=== PATIENT | female | born 1970 | race Hispanic/Latino ===

== ENCOUNTER 2022-01-01 19:46 | Emergency (ER) | payer SELFPAY ==
[2022-01-01 19:49] VITALS: BP 161/97; PULSE 83; RESP 16; TEMP 37.4; O2SAT 100
--- NOTE | 2022-01-01 20:12 | ED.EXTPRO ---
HPI - Extremity Problem General Chief complaint: Extremity Problem,Nontraumatic Stated complaint: left hand swelling Time Seen by Provider: 01/01/22 19:59 Source: patient Mode of arrival: ambulatory Limitations: no limitations History of Present Illness HPI Narrative: Patient is a 51-year-old female complaining of left hand pain, mild swelling, worse with movement x2 days. Patient states that she works a lot with her hands. Patient denies any injury to the hand. Patient denies any cold extremity. Patient denies any weakness or numbness of the hand. Patient denies any fever or chills. Related Data Allergies Allergy/AdvReac Type Severity Reaction Status Date / Time No Known Allergies Allergy Verified 01/01/22 19:47 Review of Systems Review of Systems: All systems reviewed & are unremarkable except as noted in HPI and below Constitutional: Constitutional: Denies body ache(s), Denies chills, Denies excessive sweating, Denies fatigue, Denies fever(s), Denies headache(s), Denies lethargy, Denies malaise, Denies weakness and Denies weight loss Eyes: Eyes: Denies blurry vision, Denies change in vision and Denies loss of vision ENT: Denies dizziness, Denies ear discharge, Denies headache(s), Denies lip swelling, Denies epistaxis, Denies nasal congestion, Denies neck pain, Denies throat swelling and Denies tongue swelling Cardiovascular: Cardiovascular: Denies chest pain, Denies chest pain at rest, Denies chest pain with activity, Denies diaphoresis, Denies rapid heart rate, Denies edema, Denies irregular heart rhythm, Denies lightheadedness, Denies palpitations, Denies dyspnea and Denies dyspnea on exertion Respiratory: Respiratory: Denies chest congestion, Denies cough, Denies hemoptysis, Denies dyspnea and Denies dyspnea on exertion Gastrointestinal: Gastrointestinal: Denies abdominal pain, Denies melena, Denies hematochezia, Denies diarrhea, Denies nausea, Denies vomiting and Denies hematemesis Musculoskeletal: Musculoskeletal: Denies abnormal gait, Denies deformity, Denies joint swelling, Denies limited range of motion, Denies neck pain and Denies numbness Neurologic: Denies Abnormal speech present, Denies abnormal gait, Denies confusion, Denies dizziness, Denies headache(s), Denies focal weakness, Denies loss of vision, Denies numbness, Denies Other visual disturbances, Denies Sensory deficit (Neuro) and Denies weakness Psychiatric: Psychiatric: Denies confusion, Denies depression, Denies auditory hallucinations, Denies homicidal ideation and Denies suicidal ideation Endocrine: Endocrine: Denies cold intolerance, Denies excessive sweating, Denies fatigue, Denies heat intolerance and Denies palpitations Hematologic/Lymphatic: Hematologic/Lymphatic: Denies easy bleeding and Denies easy bruising Allergic/Immunologic: Allergic/Immunologic: Denies lip swelling, Denies throat swelling and Denies tongue swelling PMFSH Comments Past medical history: Hypothyroidism Family history: Unknown Social history: Non-smoker no EtOH or drug use Exam Const: General: no acute distress and alert Orientation/consciousness: patient oriented x3 HENMT: Head: normal to inspection Eyes: Conjunctivae: conjunctivae normal Neck: Neck: normal visual inspection Resp: Effort & Inspection: normal respiratory effort Skin: General skin exam: normal color Rashes: no rashes Neuro: General: patient oriented x3 and moves all extremities Extrem: General: normal to inspection Other: Mild left hand swelling, negative for deformity, pain with range of motion, neurovascular is intact Course Vital Signs Vital signs: Vital Signs Temperature 37.4 C 01/01/22 19:49 Pulse Rate 83 01/01/22 19:49 Respiratory Rate 16 01/01/22 19:49 Blood Pressure 161/97 H 01/01/22 19:49 Pulse Oximetry 100 01/01/22 19:49 Temperature 37.4 C 01/01/22 19:49 Pulse Rate 83 01/01/22 19:49 Respiratory Rate 16 01/01/22 19:49 Blood Pressure 161/97 H 12/20
[2022-01-01] MEDS: HYDROcodone/acetaminophen (*CRX) 5-325 MG TABLET 1 TAB PO (20:26)
[2022-01-01] MEDS: CYCLOBENZAPRINE HCL 10 MG TABLET PO (20:26)
[2022-01-01] MEDS: KETOROLAC 30 MG/ML VIAL (*BKC) IM (20:27)
[2022-01-01 21:16] VITALS: BP 132/88; PULSE 77; RESP 18; O2SAT 98
== END 2022-01-01 21:23 | disposition home or self-care (01) ==
LOC: ANHED 21:05
PROVIDERS: Emergency Provider Emergency Medicine
DX: M79.642 Pain in left hand (principal); E03.9 Hypothyroidism, unspecified
CPT/HCPCS: 96372; 99283; A9270; J1885

== ENCOUNTER 2022-01-07 03:15 | Inpatient (IN) | payer MEDICAID, SELFPAY ==
[2022-01-07] VITALS (48 sets, daily range): BP systolic 98–155; BP diastolic 67–100; PULSE 60–92; RESP 12–20; TEMP 36.3–37.1; O2SAT 92–100; BMI 43.2
--- NOTE | ~2022-01-07 | XR_ITS ---
XR chest 1V portable 01/08/2022 11:26 Indication: Shortness of breath Procedure: AP portable chest Comparison: No prior studies for comparison. Findings: Cardiomegaly. No focal air space disease, pulmonary edema, pleural effusion or suspected pn eumothorax. Impression: 1: No acute cardiopulmonary disease. Reviewed, dictated and finalized at location A. TATION WORKER HOSING MACHINERY Impression: 1: No acute cardiopulmonary disease.
--- NOTE | ~2022-01-07 | CT_ITS ---
EXAMINATION: CTA chest PE protocol DATE: 01/07/2022 14:52 OPERATIONS RESEARCH MANAGER INDICATION: Shortness of breath. Chest pain. TECHNIQUE: Computed tomographic angiography (CTA) of the chest was performed with 100 mL Omnipaque-35 0 intravenous contrast. The dose-length product was 712.30 mGy-cm. Maximum intensity projection 3D-re constructions of the aorta and other arteries were constructed by the technologist on a separate work station. Automated exposure control and iterative reconstruction technique were employed. COMPARISON: None. FINDINGS: Study is technically adequate without evidence for pulmonary embolism. No thoracic lymphade nopathy. No significant pleural or pericardial effusion. There is extensive groundglass opacification in both lungs, possibly due to expiratory imaging, pneumonia or edema No pneumothorax. Cardiomegaly. IMPRESSION: 1. No evidence for pulmonary embolism. 2: Bilateral groundglass opacities which may be due to expiratory imaging, pneumonia or edema. Reviewed, dictated and finalized at location A. ATIONS RESEARCH MANAGER IMPRESSION: 1. No evidence for pulmonary embolism. 2: Bilateral groundglass opacities which may be due to expiratory imaging, pneu monia or edema.
--- NOTE | 2022-01-07 03:31 | ECG_ITS ---
Measurements Intervals [place] Rate: 67 P: 30 [place]: 151 QRS: 11 QRSD: 101 T: 14 QT: 412 QTc: 436 Interpretive Statements SINUS RHYTHM LEFT VENTRICULAR HYPERTROPHY BASELINE ARTIFACT- I, II, III, AVR, AVL, AVF BORDERLINE ECG Electronically Signed On 01-07-2022 8:18:05 STOCKROOM SUPERVISOR by Favio Gimenez D.O.
[2022-01-07] MEDS: MORPHINE SULFATE (*CRX) 4 MG/ML INJ IV PUSH ×2 (03:39→09:42)
[2022-01-07] MEDS: ONDANSETRON INJ 4 MG/2 ML VIAL IV PUSH ×2 (03:40→09:42)
[2022-01-07 03:44] LABS: Basophils Absolute Auto 0.1 K/mm3 (0.0-0.1); Basophils Percent Auto 0.8 % (0.2-1.2); Eosinophils Absolute Auto 0.2 K/mm3 (0-0.3); Eosinophils Percent Auto 1.4 % (0-4.4); Hematocrit 44.9 % (37.0-47.0); Hemoglobin 15.2 g/dL (12.0-15.0); Immature Granulocyte Absolute 0.04 K/mm3 (0.00-0.031); Immature Granulocyte Percent A 0.3 % (0-0.5); Lymphocytes Absolute Auto 6.15 K/mm3 (0.9-3.2); Lymphocytes Percent Auto 43.7 % (18.3-44.2); Mean Corpuscular HGB Conc 33.9 g/dl (32-36); Mean Corpuscular Hemoglobin 31.5 pg (26-34); Mean Corpuscular Volume 93.2 fl (80-100); Monocytes Absolute Auto 1.1 K/mm3 (0.1-0.6); Monocytes Percent Auto 7.8 % (2.6-8.5); Neutrophils Absolute Auto 6.5 K/mm3 (1.3-6.7); Platelet Count Result 316 k/mm3 (150-375); Red Blood Count 4.82 M/mm3 (4.2-5.4); Red Cell Distribution Width 14.6 % (11.5-14.5); White Blood Count 14.1 K/mm3 (4.5-10.0)
[2022-01-07 03:59] LABS: Prothrombin Time 12.5 Seconds (11.1-14.7)
[2022-01-07 04:00] LABS: Alanine Aminotransferase 31 U/L (4-35); Albumin Level 4.4 g/dL (3.5-5.1); Alkaline Phosphatase 110 U/L (38-126); Anion Gap 9 mmol/L (8-16); Aspartate Amino Transferase 27 U/L (14-36); Bilirubin,Total 0.2 mg/dL (0.2-1.3); Blood Urea Nitrogen 21 mg/dL (7-17); Calcium 9.1 mg/dL (8.4-10.2); Carbon Dioxide 27 mmol/L (22-30); Chloride 105 mmol/L (98-107); Estimated Glomerular Filt Rate > 60; Glucose 125 mg/dL (65-110); Lipase 35 U/L (23-300); Partial Thromboplastin Time 25.7 SECONDS (22.3-36.8); Potassium 3.8 mmol/L (3.4-5.0); Sodium 141 mmol/L (137-145)
[2022-01-07 04:17] LABS: NT Pro B Type Natriuretic Pept 23 pg/mL (5-100); Troponin I 0.109 ng/mL (0.000-0.034)
--- NOTE | 2022-01-07 04:21 | ECG_ITS ---
Measurements Intervals [place] Rate: 71 P: 35 [place]: 147 QRS: 14 QRSD: 104 T: 17 QT: 420 QTc: 459 Interpretive Statements SINUS RHYTHM LEFT VENTRICULAR HYPERTROPHY MINIMAL Q WAVES- HIGH LATERAL LEADS BORDERLINE ECG Electronically Signed On 01-07-2022 8:18:23 SOLE SKIVER by Favio Gimenez D.O.
--- NOTE | 2022-01-07 04:27 | ED.CHESTPAIN ---
HPI - Chest Pain General Chief Complaint: Chest Pain Stated Complaint: Chest pain Time Seen by Provider: 01/07/22 03:21 History of Present Illness HPI narrative: Patient is a 51-year-old female who is Latvian-speaking that presents ER with chest pain. Sudden onset woke her up from sleep. Center of the chest and pressure. Worse with laying down flat. Worsens also with exertion associated with shortness of breath. Denies history of [place]. Patient recently traveled from [place] to this area in the last month. Intermittently has leg swelling. No calf pain. No hemoptysis or productive cough. No pain with deep breaths. Related Data Home Medications Medication Instructions Recorded Confirmed levothyroxine 100 mcg DAILY 01/07/22 01/07/22 Allergies Allergy/AdvReac Type Severity Reaction Status Date / Time No Known Allergies Allergy Verified 01/07/22 03:31 Review of Systems Review of Systems: All systems reviewed & are unremarkable except as noted in HPI and below Constitutional: Constitutional: Denies chills, Denies fever(s) and Denies weakness ENT: Denies nasal congestion and Denies sore throat Cardiovascular: Cardiovascular: Reports chest pain, Denies rapid heart rate and Denies radiating jaw, neck or arm pain Respiratory: Respiratory: Denies cough, Reports dyspnea and Denies wheezing Gastrointestinal: Gastrointestinal: Denies abdominal pain, Denies diarrhea, Reports nausea and Denies vomiting Genitourinary: Genitourinary: Denies nocturia and Denies dysuria Musculoskeletal: Musculoskeletal: Denies back pain, Denies joint swelling and Denies muscle cramps PMFSH Past Medical History Medical History (Updated 01/08/22 @ 00:10 by Angel Rockwell MD) Hypothyroid Family History Family History (Updated 01/07/22 @ 13:39 by Gurpreet Estrada MD) Mother Hypothyroidism Social History Social History (Updated 01/07/22 @ 12:08 by Ramonita Jalloh APRN) Smoking packs per day: 0.5 Smoking cigarettes per day: 10.0 Years smoked: 10 Smoking pack-years: 5.00 Smoking status: Current every day smoker Tobacco type: cigarettes Alcohol intake: never Substance use: never Living arrangements: with family Spiritual care concerns: No Exam Narrative: GENERAL: Uncomfortable-appearing, obese, and in no acute distress. HEAD: Normocephalic, atraumatic. ENT: Mucous membranes moist. CHEST: Clear to auscultation. No respiratory distress. HEART: Regular rate and rhythm. Normal peripheral pulses. ABDOMEN: Soft, nontender, nondistended. EXTREMITIES: Normal range of motion. 1+ edema. SKIN: Warm, dry, no rash. NEURO: Alert and oriented x3. PSYCH: Normal mood and affect. Course Course Emergency Course: Pain was 8/10 but 4/10 after nitroglycerin. Admit to hospitalist service. Cardiology consulted and patient started on heparin drip. We will keep n.p.o. Vital Signs Vital signs: Vital Signs Temperature 97.4 F L 01/07/22 03:17 Pulse Rate 73 01/07/22 03:17 Respiratory Rate 20 01/07/22 03:17 Blood Pressure 139/89 01/07/22 03:17 Pulse Oximetry 98 01/07/22 03:17 Temperature 97.8 F 01/07/22 23:38 Pulse Rate 73 01/07/22 23:38 Respiratory Rate 18 01/07/22 23:38 Blood Pressure 110/67 01/07/22 23:38 Pulse Oximetry 96 01/07/22 23:38 MDM - Chest Pain Lab Data Result diagrams: 01/07/22 03:36 01/07/22 12:46 Labs: Lab Results 01/07/22 01/07/22 01/07/22 Range/Units 03:36 03:36 03:36 WBC 14.1 H (4.5-10.0) K/mm3 RBC 4.82 (4.2-5.4) M/mm3 Hgb 15.2 H (12.0-15.0) g/dL Hct 44.9 (37.0-47.0) % MCV 93.2 (80-100) fl MCH 31.5 (26-34) pg MCHC 33.9 (32-36) g/dl RDW 14.6 H (11.5-14.5) % Plt Count 316 (150-375) k/mm3 MPV 10.0 (7.4-10.4) fl Immature Gran % (Auto) 0.3 (0-0.5) % Neut % (Auto) 46.0 (45.5-73.1) % Lymph % (Auto) 43.7 (18.3-44.2) % [place] % (Auto) 7.8 (2.6-8.5) % Eos %
[2022-01-07] MEDS: NITROGLYCERIN SL 0.4 MG TABLET SUBLINGUAL (04:31)
--- NOTE | 2022-01-07 04:34 | PC.NURSE ---
Patient aware of need for urine specimen, unable to provide one at this time.
--- NOTE | 2022-01-07 04:42 | PC.NURSE ---
Patient given 2nd nitro.
[2022-01-07] MEDS: HEPARIN SODIUM 5,000 UNITS/ML VIAL 4000 UNITS IV PUSH (04:51)
[2022-01-07] MEDS: HEPARIN SOD/D5W 100 UNITS/ML 25,000 UNITS/250 ML BAG 8 UNITS IV CONT (05:30)
[2022-01-07 07:07] LABS: SARS-CoV-2 RNA PCR Negative
[2022-01-07 07:11] LABS: Add Urine Microscopic? YES; Appearance Urine Clear (Clear); Bacteria Urine Trace /hpf; Bilirubin Urine Negative (Negative); Blood Urine 1+ (Negative); Color Urine Yellow (Yellow); Glucose Urine UA Negative (Negative); Ketones Urine Negative (Negative); Leukocyte Esterase Ur Negative LEU/UL (Negative); Mucus Urine Moderate /lpf; Nitrate Urine Negative (Negative); Protein Urine Negative (Negative); Squamous Epithelial Cell Urine Rare /hpf (Few); Urobilinogen Urine Negative mg/dL (<2.0); WBC Urine 0-3 /hpf
[2022-01-07 07:20] LABS: Specific Grav Ur 1.015 (1.001-1.035)
[2022-01-07 07:21] LABS: Troponin I 0.356 ng/mL (0.000-0.034)
--- NOTE | 2022-01-07 08:17 | PC.NURSE ---
pt sent to floor with heparin drip infusing
--- NOTE | 2022-01-07 10:16 | ECG_ITS ---
Measurements Intervals [place] Rate: 73 P: 18 [place]: 142 QRS: 3 QRSD: 100 T: -10 QT: 391 QTc: 432 Interpretive Statements SINUS RHYTHM LEFT VENTRICULAR HYPERTROPHY MINIMAL Q WAVES- HIGH LATERAL LEADS BORDERLINE ST-T WAVE ABNORMALITY- INFERIOR LEADS BORDERLINE ECG Electronically Signed On 01-07-2022 10:37:40 OIL RIGGER by Favio Gimenez D.O.
--- NOTE | 2022-01-07 12:06 | PM.IMHP ---
H&P: HPI History of Present Illness Date/Time: 01/07/22 12:06 Patient is a 51-year-old female with a past medical history of hypothyroidism, tobacco abuse and obesity. She presented to the hospital after developing chest pain at 3:00 a.m. this morning. It woke her up from her sleep. Pain radiated from her chest to her neck/jaw area and around to her back. She was able to get to the emergency department and received morphine, Zofran, nitro sublingual and started on a heparin drip. Labs and imaging were obtained during this time. Labs were significant for a WBC of 14.1, hemoglobin 15.2, hematocrit 44.9, platelets 316, sodium 141, potassium 3.8, BUN 21, creatinine 0.7 and a GFR greater than 60. Glucose was mildly elevated at 125, will obtain hemoglobin A1c, normal LFTs. Troponin initially 0.109, 0.356 and the 3rd subsequent troponin 1.100. Cardiology was consulted from the emergency department and will see in consultation. EKG did not reveal any ST segment abnormalities. CTA of the chest did not reveal a pulmonary embolism, did report possible pulmonary edema/diffuse ground-glass opacifications and cardiomegaly Patient is being admitted for further evaluation of acute coronary syndrome and management of comorbidities. Chief Complaint: Chest pain Review of Systems Review of Systems: All systems reviewed & are unremarkable except as noted in HPI and below PMFSH Past Medical History Medical History (Updated 01/07/22 @ 12:10 by Ramonita Jalloh APRN) Hypothyroid Social History Social History (Updated 01/07/22 @ 12:08 by Ramonita Jalloh APRN) Smoking packs per day: 0.5 Smoking cigarettes per day: 10.0 Years smoked: 10 Smoking pack-years: 5.00 Smoking status: Current every day smoker Tobacco type: cigarettes Alcohol intake: never Substance use: never Living arrangements: with family Spiritual care concerns: No Meds Home Medications and Allergies Home Medications Medication Instructions Recorded Confirmed Type levothyroxine 100 mcg DAILY 01/07/22 01/07/22 History Allergies Allergy/AdvReac Type Severity Reaction Status Date / Time No Known Allergies Allergy Verified 01/07/22 03:31 Vital Signs Vital Signs - 24 hr 01/07/22 03:17 01/07/22 03:34 01/07/22 04:11 Temperature 97.4 F L Pulse Rate 73 67 Respiratory Rate 20 14 Blood Pressure 139/89 Pulse Oximetry 98 100 99 01/07/22 04:15 01/07/22 04:26 01/07/22 04:30 Temperature Pulse Rate 65 65 67 Respiratory Rate 14 13 Blood Pressure 121/79 Pulse Oximetry 98 95 97 01/07/22 04:31 01/07/22 04:34 01/07/22 04:37 Temperature Pulse Rate 71 71 76 Respiratory Rate 14 12 16 Blood Pressure 127/87 123/75 124/81 Pulse Oximetry 98 99 92 01/07/22 04:40 01/07/22 04:43 01/07/22 04:45 Temperature Pulse Rate 74 76 76 Respiratory Rate 16 18 16 Blood Pressure 114/83 114/82 Pulse Oximetry 93 94 94 01/07/22 04:46 01/07/22 04:49 01/07/22 05:00 Temperature Pulse Rate 75 75 72 Respiratory Rate 16 16 16 Blood Pressure 98/80 L 114/75 Pulse Oximetry 92 93 92 01/07/22 05:01 01/07/22 05:15 01/07/22 05:16 Temperature Pulse Rate 74 71 74 Respiratory Rate 15 13 15 Blood Pressure 106/72 101/75 Pulse Oximetry 94 94 93 01/07/22 05:30 01/07/22 05:31 01/07/22 05:32 Temperature Pulse Rate 69 69 68 Respiratory Rate 14 14 13 Blood Pressure 122/79 Pulse Oximetry 93 95 96 01/07/22 06:10 01/07/22 06:15 01/07/22 06:16 Temperature Pulse Rate 73 70 72 Respiratory Rate 14 14 14 Blood Pressure 140/87 Pulse Oximetry 98 97 97 01/07/22 06:30 01/07/22 07:06 01/07/22 08:16 Temperature Pulse Rate 72 71 72 Respiratory Rate 15 14 18 Blood Pressure 146/100 H 147/100 H Pulse Oximetry 96 100 100 01/07/22 08:39 Temperature 98.0 F Pulse Rate 68 Respiratory Rate 16 Blood Pressure 155/81 H Pulse Oximetry 96 Exam Narrative: General: Pt is alert awake and oriented x3, no acute distre
--- NOTE | 2022-01-07 12:09 | PC.NURSE ---
This patient, Kristen Johnson, was admitted to IMU Room 206-02. Patient/family oriented to hospital policies and general routines including ID bracelet, bed and alarms, visiting hours, pain management, procedures, bathroom and other care routines, personal items, smoking policy, room service/diet, and visiting hours. Information on how to activate the Rapid Response Team has been discussed. Patient/Family are encouraged to report perceived risks to care and to ask questions if they do not understand what they are told or what they should do.
--- NOTE | 2022-01-07 12:16 | ECHO_ITS ---
Patient Info Name: Kristen Johnson Age: 51 years : 1970 Gender: Female Ht: 60 in Wt: 221 lbs BSA: 2.12 m2 HR: 79 bpm BP: 155 / 81 mmHg Heart Rhythm: Sinus Rhythm Technical Quality: Good Exam Date: 01/07/2022 1:50 PM Exam Location: [facility] Card Pulmonary Patient Status: Inpatient Admit Date: 01/07/2022 Staff Ordering Physician: Ramonita Jalloh APRN Cotton Baler: Radha Alcantara RDCS Attending Provider: Flores Benedict MD Referring Physician: Shubham KHANNA; Exam Type: CA echo doppler color flow Study Info Complete two-dimensional, color flow and Doppler transthoracic echocardiogram is performed. Summary 1. Complete two-dimensional, color flow and Doppler transthoracic echocardiogram is performed. 2. Left ventricular chamber dimension is normal. 3. Left ventricular systolic function is low normal, estimated at 50-55%. 4. There is mildly increased left ventricular wall thickness. 5. The left ventricular diastolic function is grade II diastolic dysfunction. 6. Left atrial chamber dimension is mildly enlarged. 7. There is mild mitral valve regurgitation. 8. There is mild tricuspid valve regurgitation. Left Ventricle Left ventricular chamber dimension is normal. Left ventricular systolic function is low normal, estimated at 50-55%. There is mildly increased left ventricular wall thickness. The left ventricular diastolic function is grade II diastolic dysfunction. Right Ventricle Right ventricular chamber dimension is normal. Right ventricular systolic function is normal. Left Atria Left atrial chamber dimension is mildly enlarged. Right Atria Right atrial chamber dimension is normal. Atrial Septum Intact interatrial septum visualized by color flow imaging. Aortic Valve The aortic valve is trileaflet. There is no aortic valve sclerosis. There is no aortic valve stenosis. There is trace aortic valve regurgitation. Pulmonic Valve The pulmonic valve is normal. There is no pulmonic valve stenosis. There is trace pulmonic regurgitation. Mitral Valve The mitral valve has normal leaflets. There is no mitral valve stenosis. There is mild mitral valve regurgitation. Tricuspid Valve The tricuspid valve leaflets are normal. There is no significant tricuspid valve stenosis. There is mild tricuspid valve regurgitation. No pulmonary hypertension, estimated pulmonary arterial systolic pressure is 25 mmHg. Pericardium/Pleural The pericardium appears normal. There is trivial pericardial effusion. Inferior Vena Cava Normal inferior vena cava with >50% collapse upon inspiration consistent with normal right atrial pressure, 5 mmHg. Aorta The aortic root size at the sinus of Valsalva is normal. Left Ventricular Outflow Tract Name Value Normal LVOT 2D LVOT Diameter 2.0 cm LVOT Doppler LVOT Peak Gradient 3 mmHg LVOT Mean Gradient 1 mmHg LVOT VTI 17 cm LVOT VTI/AV VTI Ratio 0.7 LVOT Stroke Volume 47 ml LVOT CO
[2022-01-07 13:21] LABS: Partial Thromboplastin Time 37.7 SECONDS (22.3-36.8)
--- NOTE | 2022-01-07 13:36 | PM.CNCAR ---
Assessment and Plan Assessment and plan (1) Acute coronary syndrome: Code(s): I24.9 - Acute ischemic heart disease, unspecified Status: Acute Assessment and Plan: Patient has elevated troponins that are rising and consistent with non ST-elevation myocardial infarction. She is on heparin. Will start her on atorvastatin 40 mg daily. Aspirin 81 mg p.o. daily. Metoprolol 25 mg p.o. b.i.d.. She did receive nitroglycerin which did help her pain but it has increased in is continuing at a 4/10 at this point. I did talk to her the risks benefits and alternatives of invasive cardiac workup including cardiac catheterization. She verbalized understanding and is agreeable. Interpretation is done with the assistance of a 3rd alliance party ski tow operator. Daughter is at bedside also and is in agreement. She will be kept NPO for coronary angiogram now. Will start her on IV fluids normal saline 75 cc per hour since she did receive IV dye or earlier today because of the CT scan. Will also check a lipid panel as well as a 2D echocardiogram Doppler. Further workup and evaluation and recommendation depending on the results of the coronary angiogram. (2) Tobacco abuse: Code(s): Z72.0 - Tobacco use Status: Acute Assessment and Plan: Smoking cessation counseling performed. (3) Obese: Code(s): E66.9 - Obesity, unspecified Status: Acute Assessment and Plan: Weight loss advised (4) Hypothyroidism: Code(s): E03.9 - Hypothyroidism, unspecified Status: Acute Assessment and Plan: Continue levothyroxine History of Present Illness History of Present Illness Consult date/time: 01/07/22 13:36 Requesting physician: Angel Rockwell MD Consult reason: Other (Non-STEMI) Reason For Visit: NSTEMI Narrative: Date of service 01/07/2022 Reason consultation: Chest pain, non-STEMI Requesting provider: Dr. Rockwell History: Patient is a 51-year-old Thai-speaking female who has a history of tobacco use, obesity and hypothyroidism. She presented to the hospital after developing chest pain at approximately 3:00 a.m. this morning. Woke up from sleep and did radiate towards her neck back and left shoulder area. She did have associated sweatiness as well as shortness of breath but no nausea. At its worst was 9/10 which did respond to nitroglycerin. It is still currently 4/10. She did have CT scan of chest which ruled out PE. She has had some chronic lower extremity swelling in her legs but this is not new or different due to the fact that she is on her feet chronically. She denies any recent syncope, presyncope, paroxysmal nocturnal dyspnea, orthopnea, edema or palpitations. She has not had any previous cardiac history. Review of Systems Review of Systems: All systems reviewed & are unremarkable except as noted in HPI and below Constitutional: Constitutional: Denies weakness Eyes: Eyes: Denies blurry vision ENT: Reports Normal hearing present Cardiovascular: Cardiovascular: Reports chest pain and Reports leg edema Respiratory: Respiratory: Denies dyspnea Gastrointestinal: Gastrointestinal: Denies abdominal pain Genitourinary: Genitourinary: Denies flank pain Musculoskeletal: Musculoskeletal: Denies back pain Integumentary/Breasts: Skin/Breast: Denies dry skin and Denies unusual bruising Neurologic: Denies headache(s) and Denies numbness Psychiatric: Psychiatric: Denies anxiety and Denies confusion Endocrine: Endocrine: Denies excessive sweating Hematologic/Lymphatic: Hematologic/Lymphatic: Denies easy bleeding Allergic/Immunologic: Allergic/Immunologic: Denies GI upset with certain foods PMFSH Past Medical History Medical History (Updated 01/07/22 @ 12:10 by Ramonita Jalloh APRN) Hypothyroid Family History Family History (Updated 01/07/22 @ 13:39 by Gurpreet Estrada MD) Mother Hypothyroidism Social History Social History (Updated 01/07/22 @ 12:08 by
[2022-01-07 13:38] LABS: Alanine Aminotransferase 29 U/L (4-35); Albumin Level 4.3 g/dL (3.5-5.1); Alkaline Phosphatase 115 U/L (38-126); Anion Gap 7 mmol/L (8-16); Aspartate Amino Transferase 38 U/L (14-36); Bilirubin,Total 0.4 mg/dL (0.2-1.3); Blood Urea Nitrogen 22 mg/dL (7-17); Calcium 8.9 mg/dL (8.4-10.2); Carbon Dioxide 29 mmol/L (22-30); Chloride 103 mmol/L (98-107); Cholesterol 171 mg/dL (0-200); Estimated CRCL calculation 76 ml/min; Estimated Glomerular Filt Rate > 60; Glucose 117 mg/dL (65-110); HDL Direct 49 mg/dL; Potassium 4.2 mmol/L (3.4-5.0); Sodium 139 mmol/L (137-145); Triglycerides 258 mg/dL (<150)
[2022-01-07 13:48] LABS: LDL Cholesterol Direct 83 mg/dL
[2022-01-07] MEDS: ATORVASTATIN 40 MG TABLET PO (14:18)
[2022-01-07] MEDS: SODIUM CHLORIDE 0.9% IV 1,000 ML 100 ML IV CONT (14:18)
[2022-01-07] MEDS: ASPIRIN 81 MG CHEWABLE TABLET PO (14:18)
[2022-01-07] MEDS: METOPROLOL TARTRATE 25 MG TABLET PO ×2 (14:18→20:33)
--- NOTE | 2022-01-07 15:00 | WPDCARDPROC ---
Cardiac Cath Procedure Note Date of procedure:: 01/07/22 Performing physician:: Juan Carpenter MD Assessment and Plan Additional Plan PROCEDURE 1. LHC and coronary angiogram 2. IVUS of LCX and LAD INDICATION NSTEMI HISTORY Acute chest pain and NSTEMI PROCEDURE DETAILS Consent obtained and access site prepped and draped in sterile fashion Sedation was done with versed 1mg and fentanyl 50 mcg with continuos monitoring and supervision by myself and operation research analyst Obtained in Rt radial artery with modified Seldinger technique Coronary angiogram was done using TIG HEMODYNAMICS Aorta: 140/70 LV: 140/20 CORONARY ANGIOGRAM Left main: Normal LAD: Normal gives intermediate size or small diagonals and reaches to apex with no obstructive disease but slow flow LCX: mid LCX 40% stenosis, gives one large OM and has mid segment 70% stenosis RCA: Normal dominant vessel gives PDA and rPL with no obstructive disease IVUS DETAILS #1 lesion: LCX Guide catheter: CLS 3.0 Guide wire: whisper wire used to cross lesion into distal vessel LAD and LCX IVUS was done with [employer] [place] [employer] and showed normal Left main and LAD. LCX shows intra-mural hematoma extending from distal LCX to proximal LCX and involving OM. Wire and catheter removed and final angiogram unchanged. 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
[2022-01-07 16:18] LABS: Activated Clotting Time 124 SEC (74-137)
[2022-01-07 16:18] LABS: Activated Clotting Time 190 SEC (74-137)
[2022-01-07] MEDS: SODIUM CHLORIDE 0.9% IV 1,000 ML 125 ML IV CONT (18:01)
[2022-01-07 18:50] LABS: Partial Thromboplastin Time 41.1 SECONDS (22.3-36.8)
[2022-01-08] VITALS (69 sets, daily range): BP systolic 114–140; BP diastolic 64–72; PULSE 46–78; RESP 13–20; TEMP 36.3–36.7; O2SAT 85–100
[2022-01-08] MEDS: SODIUM CHLORIDE 0.9% IV 1,000 ML 100 ML IV CONT (02:12)
[2022-01-08] MEDS: HEPARIN SOD/D5W 100 UNITS/ML 25,000 UNITS/250 ML BAG 8 UNITS IV CONT (02:15)
[2022-01-08] MEDS: LEVOTHYROXINE SODIUM 100 MCG TABLET PO (06:46)
[2022-01-08 09:06] LABS: Basophils Absolute Auto 0.1 K/mm3 (0.0-0.1); Basophils Percent Auto 0.8 % (0.2-1.2); Eosinophils Absolute Auto 0.3 K/mm3 (0-0.3); Eosinophils Percent Auto 3.5 % (0-4.4); Hematocrit 40.1 % (37.0-47.0); Hemoglobin 13.2 g/dL (12.0-15.0); Immature Granulocyte Absolute 0.03 K/mm3 (0.00-0.031); Immature Granulocyte Percent A 0.3 % (0-0.5); Lymphocytes Absolute Auto 3.59 K/mm3 (0.9-3.2); Lymphocytes Percent Auto 38.1 % (18.3-44.2); Mean Corpuscular HGB Conc 32.9 g/dl (32-36); Mean Corpuscular Hemoglobin 30.8 pg (26-34); Mean Corpuscular Volume 93.7 fl (80-100); Mean Platelet Volume 10.1 fl (7.4-10.4); Monocytes Absolute Auto 0.7 K/mm3 (0.1-0.6); Monocytes Percent Auto 6.9 % (2.6-8.5); Neutrophils Absolute Auto 4.8 K/mm3 (1.3-6.7); Neutrophils Percent Auto 50.4 % (45.5-73.1); Platelet Count Result 277 k/mm3 (150-375); Red Blood Count 4.28 M/mm3 (4.2-5.4); Red Cell Distribution Width 15.4 % (11.5-14.5); White Blood Count 9.4 K/mm3 (4.5-10.0)
[2022-01-08 09:32] LABS: Partial Thromboplastin Time 47.2 SECONDS (22.3-36.8)
[2022-01-08 09:34] LABS: Magnesium 1.9 mg/dL (1.6-2.3)
[2022-01-08] MEDS: HEPARIN SODIUM 5,000 UNITS/ML VIAL 4000 UNITS IV PUSH (09:55)
[2022-01-08] MEDS: ATORVASTATIN 40 MG TABLET PO (09:58)
[2022-01-08] MEDS: ASPIRIN 81 MG CHEWABLE TABLET PO (09:58)
[2022-01-08] MEDS: METOPROLOL TARTRATE 25 MG TABLET PO ×2 (09:58→20:06)
--- NOTE | 2022-01-08 10:49 | PM.PNCARD ---
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 She still has some chest pain with exertion but better than yesterday. Continue heparin times another 24-48 hours. If her pain does resolve, no further intervention needed. If her pain worsens, will need repeat angiogram with IVUS to ensure no extension of dissection plane. DC IV fluids. Will repeat a troponin now to evaluate for peak (2) Tobacco abuse: Code(s): Z72.0 - Tobacco use Status: Acute Assessment and Plan: Smoking cessation counseling performed. (3) Obese: Code(s): E66.9 - Obesity, unspecified Status: Acute Assessment and Plan: Weight loss advised (4) Hypothyroidism: Code(s): E03.9 - Hypothyroidism, unspecified Status: Acute Assessment and Plan: Continue levothyroxine Subjective Date/time seen: 01/08/22 10:49 Interval history: 51-year-old female admitted for ACS. Cardiac catheterization performed yesterday shows circumflex dissection with intramural thrombus. Date of service 01/08/2022: Still has some chest pain with exertion but better than yesterday. No shortness of breath Review of Systems Review of Systems: All systems reviewed & are unremarkable except as noted in HPI and below Constitutional: Constitutional: Denies excessive sweating, Denies headache(s) and Denies weakness Eyes: Eyes: Denies blurry vision ENT: Reports Normal hearing present and Denies headache(s) Cardiovascular: Cardiovascular: Reports chest pain, Reports leg edema and Denies dyspnea Respiratory: Respiratory: Denies dyspnea Gastrointestinal: Gastrointestinal: Denies abdominal pain Genitourinary: Genitourinary: Denies flank pain Musculoskeletal: Musculoskeletal: Denies back pain and Denies numbness Integumentary/Breasts: Skin/Breast: Denies dry skin and Denies unusual bruising Neurologic: Reports Normal hearing present, Denies confusion, Denies headache(s), Denies numbness and Denies weakness Psychiatric: Psychiatric: Denies anxiety and Denies confusion Endocrine: Endocrine: Denies excessive sweating Hematologic/Lymphatic: Hematologic/Lymphatic: Denies easy bleeding Allergic/Immunologic: Allergic/Immunologic: Denies GI upset with certain foods Exam Narrative: Awake alert. Appears stated age Const: General: in distress and uncomfortable; No confusion Orientation/consciousness: No confusion HENMT: General nose exam: Normal nares present Eyes: Sclera: sclerae normal Neck: Neck: supple and no JVD Chest: Other: No reproducible chest wall pain to palpation Resp: Auscultation: clear to auscultation bilaterally Cardio: Rate: regular rate Rhythm: regular rhythm GI: Auscultation: normal bowel sounds Skin: General skin exam: normal color Neuro: General: No confusion Cranial nerves: Yes Normal hearing present Cognition (Neuro): normal cognition Speech: normal speech Extrem: General: normal to inspection and no edema Psych: Mental Status: mental status grossly normal Objective Data Vital Signs Vital Signs: Vital Signs - 24 hr 01/07/22 12:00 01/07/22 14:00 01/07/22 14:03 Temperature 36.6 C Pulse Rate 79 77 Respiratory Rate 16 Blood Pressure 142/87 H Pulse Oximetry 93 97 01/07/22 14:18 01/07/22 16:00 01/07/22 16:32 Temperature 36.5 C Pulse Rate 73 92 64 Respiratory Rate 16 Blood Pressure 133/86 Pulse Oximetry 96 01/07/22 16:47 01/07/22 17:02 01/07/22 17:32 Temperature 36.5 C 36.5 C 36.5 C Pulse Rate 63 65 67 Respiratory Rate 16 14 14 Blood Pressure 132/86 133/86 132/86 Pulse Oximetry 96 96 96 01/07/22 18:00 01/07/22 18:02 01/07/22 19:02 Temperature 36.4 C 36.6 C Pulse Rate 65 65 60 Respiratory Rate 1
--- NOTE | 2022-01-08 11:08 | PM.IMPN ---
Progress Note: A&P Assessment and Plan (1) Acute coronary syndrome: Code(s): I24.9 - Acute ischemic heart disease, unspecified Status: Acute Assessment and Plan: Monitor vital signs, I&Os, chest pain, shortness of breath and patient is a fall risk Monitor PTT, serial troponins, Serum electrolytes, and cbc Keep serum potassium >4 and keep magnesium >2 Cardiology consulted, appreciate assistance and recommendations --cardiac catheterization was performed revealed LCX shows intra-mural hematoma extending from distal LCX to proximal LCX and involving OM Continue Heparin drip per ACS protocol and aspirin per Cardiology Monitor for bloody bowel movements,chest pain,SOB or dizziness/lightheadedness Echocardiogram reviewed, LVEF 50-55% with mild left ventricular wall thickness, grade 2 diastolic function, mild mitral valve regurgitation, mild tricuspid valve regurgitation DVT Px: Heparin Drip (2) Tobacco abuse: Code(s): Z72.0 - Tobacco use Status: Acute Assessment and Plan: Smoking cessation counseling given for 3 minutes, will add nicotine patch daily (3) Obese: Code(s): E66.9 - Obesity, unspecified Status: Acute Assessment and Plan: Discussed dietary modifications (4) Hypothyroidism: Code(s): E03.9 - Hypothyroidism, unspecified Status: Acute Assessment and Plan: Resume home medications, repeat TSH (5) Sleep apnea: Code(s): G47.30 - Sleep apnea, unspecified Status: Acute Assessment and Plan: obtain a nocturnal sleep study. Patient reportedly had an SpO2 in the 60s during the night, 2 L of oxygen was applied per nasal cannula Subjective Date/time seen: 01/08/22 11:08 The patient was evaluated this morning at bedside with the teletypewriter operator service. Patient was able to communicate well. She is alert and oriented x4. She did report mild shortness of breath during the night. Denies any chest pain. Obtain chest x-ray this morning, pending results. Cardiology note reviewed, continue heparin and aspirin. Patient denies any active chest pain, nausea, vomiting or diarrhea. She did endorse mild shortness of breath, 2 L of oxygen applied to the patient. SpO2 99% on room air. Patient reportedly had an episode of apnea during the night and her SpO2 dropped to 68%. Will obtain a nocturnal sleep study tonight. Cardiac catheterization site appears clean, dry and dressing is intact. Review of Systems Review of Systems: All systems reviewed & are unremarkable except as noted in HPI and below Exam Narrative: General: Pt is alert awake and oriented x3, no acute distress Lungs/Chest: Trachea central Clear BS B/L No respiratory distress or use of accessory muscle, Cardiac: RRR. Normal S1 S2. No murmurs Circulation: Pedal pulses are intact and symmetrical. Abdomen: Normal bowel sounds. Soft. NT. ND. Extremities: No clubbing, cyanosis Warm. no edema in lower extremities, atraumatic, strength 5/5 in all extremities Neurologic: Follows commands. Moves all 4 extremities PERRL AO x3 Skin: No Rash or lesions Objective Data Vital Signs Vital Signs: Vital Signs - 24 hr 01/07/22 12:00 01/07/22 14:00 01/07/22 14:03 Temperature 97.9 F Pulse Rate 79 77 Respiratory Rate 16 Blood Pressure 142/87 H Pulse Oximetry 93 97 01/07/22 14:18 01/07/22 16:00 01/07/22 16:32 Temperature 97.7 F Pulse Rate 73 92 64 Respiratory Rate 16 Blood Pressure 133/86 Pulse Oximetry 96 01/07/22 16:47 01/07/22 17:02 01/07/22 17:32 Temperature 97.7 F 97.7 F 97.7 F Pulse Rate 63 65 67 Respiratory Rate 16 14 14 Blood Pressure 132/86 133/86 132/86 Pulse Oximetry 96 96 96 01/07/22 18:00 01/07/22 18:02 01/07/22 19:02 Temperature 97.6 F 98 F Pulse Rate 65 65 60 Respiratory Rate 16 16 Blood Pressure 145/86 H 120/85 Pulse Oximetry 96 97 01/07/22 20:00 01/07/22 20:33 01/07/22 21:00 Temperature 98.8 F 98.7 F Pulse Rate 64 61 71 Respir
[2022-01-08 16:05] LABS: Partial Thromboplastin Time 97.6 SECONDS (22.3-36.8)
--- NOTE | 2022-01-08 18:53 | PC.NURSE ---
Patient arrived to [facility] at 1845 by bed. Bedside report received by YONI Wilson. All questions answered and plan of care reviewed. Patient brought with all belongings and oriented to room policies and procedures.
[2022-01-09] VITALS (29 sets, daily range): BP systolic 84–126; BP diastolic 57–72; PULSE 52–70; RESP 9–23; TEMP 36.4–37; O2SAT 92–100
--- NOTE | 2022-01-09 01:17 | ECG_ITS ---
Measurements Intervals Rison Rate: 57 P: -3 DE: 155 QRS: 18 QRSD: 105 T: 3 QT: 419 QTc: 410 Interpretive Statements SINUS BRADYCARDIA DELAYED PRECORDIAL R/S TRANSITION BORDERLINE ST-T WAVE ABNORMALITY- INFERIOR LEADS BORDERLINE ECG Electronically Signed On 01-09-2022 8:01:04 TACKER OFF by Favio Gimenez D.O.
[2022-01-09] MEDS: MORPHINE SULFATE (*CRX) 4 MG/ML INJ IV PUSH (01:24)
[2022-01-09] MEDS: HEPARIN SOD/D5W 100 UNITS/ML 25,000 UNITS/250 ML BAG 11 UNITS IV CONT (01:28)
[2022-01-09] MEDS: LEVOTHYROXINE SODIUM 100 MCG TABLET PO (05:31)
[2022-01-09 05:34] LABS: Basophils Absolute Auto 0.1 K/mm3 (0.0-0.1); Basophils Percent Auto 0.8 % (0.2-1.2); Eosinophils Absolute Auto 0.4 K/mm3 (0-0.3); Eosinophils Percent Auto 4.3 % (0-4.4); Hematocrit 41.2 % (37.0-47.0); Hemoglobin 13.4 g/dL (12.0-15.0); Immature Granulocyte Absolute 0.02 K/mm3 (0.00-0.031); Immature Granulocyte Percent A 0.2 % (0-0.5); Lymphocytes Absolute Auto 3.73 K/mm3 (0.9-3.2); Lymphocytes Percent Auto 39.1 % (18.3-44.2); Mean Corpuscular HGB Conc 32.5 g/dl (32-36); Mean Corpuscular Hemoglobin 31.2 pg (26-34); Mean Corpuscular Volume 95.8 fl (80-100); Mean Platelet Volume 10.4 fl (7.4-10.4); Monocytes Absolute Auto 0.8 K/mm3 (0.1-0.6); Monocytes Percent Auto 8.3 % (2.6-8.5); Neutrophils Absolute Auto 4.5 K/mm3 (1.3-6.7); Neutrophils Percent Auto 47.3 % (45.5-73.1); Platelet Count Result 258 k/mm3 (150-375); Red Cell Distribution Width 15.1 % (11.5-14.5); White Blood Count 9.6 K/mm3 (4.5-10.0)
[2022-01-09 05:41] LABS: Partial Thromboplastin Time 78.6 SECONDS (22.3-36.8)
[2022-01-09 05:43] LABS: Alanine Aminotransferase 24 U/L (4-35); Albumin Level 3.7 g/dL (3.5-5.1); Alkaline Phosphatase 103 U/L (38-126); Anion Gap 5 mmol/L (8-16); Aspartate Amino Transferase 34 U/L (14-36); Bilirubin,Total 0.3 mg/dL (0.2-1.3); Blood Urea Nitrogen 15 mg/dL (7-17); Calcium 8.7 mg/dL (8.4-10.2); Carbon Dioxide 31 mmol/L (22-30); Chloride 101 mmol/L (98-107); Estimated CRCL calculation 77 ml/min; Estimated Glomerular Filt Rate > 60; Glucose 105 mg/dL (65-110); Magnesium 1.9 mg/dL (1.6-2.3); Potassium 3.9 mmol/L (3.4-5.0); Sodium 137 mmol/L (137-145)
--- NOTE | 2022-01-09 08:15 | P.PNIM_ITS ---
Progress Note: A&P Assessment and Plan (1) Acute coronary syndrome: Code(s): I24.9 - Acute ischemic heart disease, unspecified Status: Acute Assessment and Plan: * Present to the ED with Chest pain * EKG SR with some inverted T waves * Chest xray: no acute cardiopulmonary abnormalities * CTA: No evidence for pulmonary embolism, Bilateral ground glass opacities which may be due to expiratory imaging, pneumonia or edema. 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 with hematoma of the LCX * Monitor vital signs, I&Os, chest pain, shortness of breath and patient is a fall risk * Continue Heparin drip per ACS protocol and aspirin per Cardiology * DVT Px: Heparin Drip (2) Tobacco abuse: Code(s): Z72.0 - Tobacco use Status: Acute Assessment and Plan: * Smoking cessation counseling given for 8 minutes * Nicotine patch daily (3) Obese: Code(s): E66.9 - Obesity, unspecified Status: Acute Assessment and Plan: * Discussed dietary modifications * Chief Meteorologist consult * lifestyle modifications (4) Hypothyroidism: Code(s): E03.9 - Hypothyroidism, unspecified Status: Acute Assessment and Plan: * Resume home medications * TSH 33.600, T4 0.70 (5) Sleep apnea: Code(s): G47.30 - Sleep apnea, unspecified Status: Acute Assessment and Plan: * Apnea link initiated last night, interrupted with chest pain * reportedly had an SpO2 in the 60s during the night * 2 L of oxygen was applied per nasal cannula, wean to maintain saturations (6) Hyperlipidemia: Code(s): E78.5 - Hyperlipidemia, unspecified Status: Acute Assessment and Plan: * Lipid panel: Cholesterol 171, LDL 83, HDL 49, triglycerides 258 * Atorvastatin 40mg PO daily Time Spent With Patient Time with patient: 25 - 35 minutes Subjective Date/time seen: 01/09/22 08:15 Interval history: Date/Time: 01/07/22 12:06 Patient is a 51-year-old female with a past medical history of hypothyroidism, tobacco abuse and obesity. She presented to the hospital after developing chest pain at 3:00 a.m. this morning. It woke her up from her sleep. Pain radiated from her chest to her neck/jaw area and around to her back. She was able to get to the emergency department and received morphine, Zofran, nitro sublingual and started on a heparin drip. Labs and imaging were obtained during this time. Labs were significant for a WBC of 14.1, hemoglobin 15.2, hematocrit 44.9, platelets 316, sodium 141, potassium 3.8, BUN 21, creatinine 0.7 and a GFR greater than 60. Glucose was mildly elevated at 125, will obtain hemoglobin A1c, normal LFTs. Troponin initially 0.109, 0.356 and the 3rd subsequent troponin 1.100. Cardiology was consulted from the emergency department and will see in consultation. EKG did not reveal any ST segment abnormalities. CTA of the chest did not reveal a pulmonary embolism, did report possible pulmonary edema/diffuse ground-glass opacifications and cardiomegaly Date/time seen: 01/08/22 11:08 The patient was evaluated this morning at bedside with the ambulette driver service. Patient was able to communicate well. She is alert and oriented x4. She did report mild shortness of breath during the night. Denies any chest pain. Obtain chest x-ray this morning, shanika
--- NOTE | 2022-01-09 08:15 | PM.IMPN ---
Progress Note: A&P Assessment and Plan (1) Acute coronary syndrome: Code(s): I24.9 - Acute ischemic heart disease, unspecified Status: Acute Assessment and Plan: Present to the ED with Chest pain EKG SR with some inverted T waves Chest xray: no acute cardiopulmonary abnormalities CTA: No evidence for pulmonary embolism, Bilateral ground glass opacities which may be due to expiratory imaging, pneumonia or edema. 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 with hematoma of the LCX Monitor vital signs, I&Os, chest pain, shortness of breath and patient is a fall risk Continue Heparin drip per ACS protocol and aspirin per Cardiology DVT Px: Heparin Drip (2) Tobacco abuse: Code(s): Z72.0 - Tobacco use Status: Acute Assessment and Plan: Smoking cessation counseling given for 8 minutes Nicotine patch daily (3) Obese: Code(s): E66.9 - Obesity, unspecified Status: Acute Assessment and Plan: Discussed dietary modifications Credit Control Assistant consult lifestyle modifications (4) Hypothyroidism: Code(s): E03.9 - Hypothyroidism, unspecified Status: Acute Assessment and Plan: Resume home medications TSH 33.600, T4 0.70 (5) Sleep apnea: Code(s): G47.30 - Sleep apnea, unspecified Status: Acute Assessment and Plan: Apnea link initiated last night, interrupted with chest pain reportedly had an SpO2 in the 60s during the night 2 L of oxygen was applied per nasal cannula, wean to maintain saturations (6) Hyperlipidemia: Code(s): E78.5 - Hyperlipidemia, unspecified Status: Acute Assessment and Plan: Lipid panel: Cholesterol 171, LDL 83, HDL 49, triglycerides 258 Atorvastatin 40mg PO daily Time Spent With Patient Time with patient: 25 - 35 minutes Subjective Date/time seen: 01/09/22 08:15 Interval history: Date/Time: 01/07/22 12:06 Patient is a 51-year-old female with a past medical history of hypothyroidism, tobacco abuse and obesity. She presented to the hospital after developing chest pain at 3:00 a.m. this morning. It woke her up from her sleep. Pain radiated from her chest to her neck/jaw area and around to her back. She was able to get to the emergency department and received morphine, Zofran, nitro sublingual and started on a heparin drip. Labs and imaging were obtained during this time. Labs were significant for a WBC of 14.1, hemoglobin 15.2, hematocrit 44.9, platelets 316, sodium 141, potassium 3.8, BUN 21, creatinine 0.7 and a GFR greater than 60. Glucose was mildly elevated at 125, will obtain hemoglobin A1c, normal LFTs. Troponin initially 0.109, 0.356 and the 3rd subsequent troponin 1.100. Cardiology was consulted from the emergency department and will see in consultation. EKG did not reveal any ST segment abnormalities. CTA of the chest did not reveal a pulmonary embolism, did report possible pulmonary edema/diffuse ground-glass opacifications and cardiomegaly Date/time seen: 01/08/22 11:08 The patient was evaluated this morning at bedside with the assembly worker service. Patient was able to communicate well. She is alert and oriented x4. She did report mild shortness of breath during the night. Denies any chest pain. Obtain chest x-ray this morning, pending results. Cardiology note reviewed, continue heparin and aspirin. Patient denies any active chest pain, nausea, vomiting or diarrhea. She did endorse mild shortness of breath, 2 L of oxygen applied to the patient. SpO2 99% on room air. Patient reportedly had an episode of apnea during the night and her SpO2 dropped to 68%. Will obtain a nocturnal sleep study tonight. Cardiac catheterization site appears clean, dry and dressing is intact. Date/Ti
--- NOTE | 2022-01-09 08:49 | PM.PNCARD ---
Progress Note: A&P Additional Plan 51-year-old female with: Acute coronary syndrome with angiographic results showing spontaneous coronary dissection. The patient is asymptomatic of chest pain this morning on aspirin beta-aline and heparin. I would continue systemic anticoagulation at least another day or 2. Episode of chest pain last night that spontaneously resolved after about 30-40 minutes. Further intervention in this particular situation is generally not felt to be helpful and should be discouraged. As long as she is not having active chest pain and troponin is declining this should be the ongoing plan. If she does have recurrent ischemic chest pain that we cannot control we may transfer her to a tertiary care center. Epi Mann MD [facility] Subjective Date/time seen: 01/09/22 08:49 Interval history: Follow-up visit in this 51-year-old female with: Chest pain emergency catheterization done on Sunday yields the diagnosis of spontaneous coronary dissection. Being treated with aspirin beta-aline and anticoagulation as well as statin. This morning patient reports no active chest pain feels a bit short of breath. History obtained through the virtual dice spotter since she speaks no [place]uran. Explain the unusual diagnosis to the patient through the dice spotter. Exam Narrative: Awake alert. Appears stated age Const: General: in distress and uncomfortable; No confusion Orientation/consciousness: No confusion HENMT: General nose exam: Normal nares present Eyes: Sclera: sclerae normal Neck: Neck: supple and no JVD Chest: Other: No reproducible chest wall pain to palpation Resp: Auscultation: clear to auscultation bilaterally Cardio: Rate: regular rate Rhythm: regular rhythm GI: Auscultation: normal bowel sounds Skin: General skin exam: normal color Neuro: General: No confusion Cranial nerves: Yes Normal hearing present Cognition (Neuro): normal cognition Speech: normal speech Extrem: General: normal to inspection and no edema Psych: Mental Status: mental status grossly normal Objective Data Vital Signs Vital Signs: Vital Signs - 24 hr 01/08/22 09:00 01/08/22 09:41 01/08/22 09:52 Temperature Pulse Rate 63 57 L 78 Respiratory Rate Blood Pressure Pulse Oximetry 01/08/22 09:58 01/08/22 10:00 01/08/22 10:36 Temperature Pulse Rate 62 55 L 57 L Respiratory Rate Blood Pressure Pulse Oximetry 01/08/22 10:57 01/08/22 11:00 01/08/22 11:15 Temperature Pulse Rate 60 54 L 62 Respiratory Rate Blood Pressure Pulse Oximetry 01/08/22 11:30 01/08/22 11:45 01/08/22 12:00 Temperature 36.6 C Pulse Rate 61 57 L 64 Respiratory Rate 14 Blood Pressure 122/72 Pulse Oximetry 100 01/08/22 12:01 01/08/22 12:15 01/08/22 12:30 Temperature Pulse Rate 59 L 58 L 57 L Respiratory Rate Blood Pressure Pulse Oximetry 01/08/22 12:45 01/08/22 13:03 01/08/22 13:15 Temperature Pulse Rate 66 65 65 Respiratory Rate Blood Pressure Pulse Oximetry 01/08/22 13:30 01/08/22 13:45 01/08/22 13:50 Temperature Pulse Rate 65 68 72 Respiratory Rate Blood Pressure Pulse Oximetry 01/08/22 14:00 01/08/22 14:51 01/08/22 15:05 Temperature Pulse Rate 58 L 57 L 54 L Respiratory Rate Blood Pressure Pulse Oximetry 01/08/22 15:33 01/08/22 15:49 01/08/22 16:00 Temperature 36.6 C 36.7 C Pulse Rate 61 64 61 Respiratory Rate 14 14 Blood Pressure 122/72 114/71 Pulse Oximetry 100 100 01/08/22 16:15 01/08/22 16:30 01/08/22 16:45 Temperature Pulse Rate 62 62 59 L Respiratory Rate Blood Pressure Pulse Oximetry 01/08/22 17:01 01/08/22 17:15 01/08/22 17:30 Temperature Pulse Rate 66 65 67 Respiratory Rate Blood Pressure Pulse Oximetry 01/08/22 17:45 01/08/22 18:00 01/08/22 18:15 Temperature Pulse Rate 64 65 63 Respiratory Rat
[2022-01-09] MEDS: ATORVASTATIN 40 MG TABLET PO (09:15)
[2022-01-09] MEDS: METOPROLOL TARTRATE 25 MG TABLET PO ×2 (09:15→19:59)
[2022-01-09] MEDS: ASPIRIN 81 MG CHEWABLE TABLET PO (09:15)
[2022-01-09 10:28] LABS: Hemoglobin A1C 5.8 % (<5.7)
[2022-01-10] VITALS (17 sets, daily range): BP systolic 103–134; BP diastolic 57–80; PULSE 55–72; RESP 12–22; TEMP 35.9–37.2; O2SAT 93–98
[2022-01-10] MEDS: HEPARIN SOD/D5W 100 UNITS/ML 25,000 UNITS/250 ML BAG 11 UNITS IV CONT (04:53)
[2022-01-10 06:22] LABS: Partial Thromboplastin Time 39.6 SECONDS (22.3-36.8)
[2022-01-10] MEDS: LEVOTHYROXINE SODIUM 100 MCG TABLET PO (06:32)
[2022-01-10] MEDS: HEPARIN SODIUM 5,000 UNITS/ML VIAL 4000 UNITS IV PUSH ×2 (07:34→23:15)
[2022-01-10] MEDS: ASPIRIN 81 MG CHEWABLE TABLET PO (09:00)
[2022-01-10] MEDS: METOPROLOL TARTRATE 25 MG TABLET PO ×2 (09:00→20:59)
[2022-01-10] MEDS: ATORVASTATIN 40 MG TABLET PO (09:00)
--- NOTE | 2022-01-10 12:07 | PM.PNCARD ---
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 She denies any ongoing chest pain at this time. Since her pain has resolved she does not require any further intervention. Will continue anticoagulation with heparin for another 24 hours if she remains stable and chest pain-free she would be reasonable for discharge at that time. (2) Tobacco abuse: Code(s): Z72.0 - Tobacco use Status: Acute Assessment and Plan: Smoking cessation counseling performed. (3) Obese: Code(s): E66.9 - Obesity, unspecified Status: Acute Assessment and Plan: Weight loss advised (4) Hypothyroidism: Code(s): E03.9 - Hypothyroidism, unspecified Status: Acute Assessment and Plan: Continue levothyroxine Subjective Date/time seen: 01/10/22 12:07 Interval history: Follow-up visit in this 51-year-old female with: Chest pain emergency catheterization done on Sunday yields the diagnosis of spontaneous coronary dissection. Being treated with aspirin beta-aline and anticoagulation as well as statin. This morning patient reports no active chest pain feels a bit short of breath. History obtained through the virtual hair and makeup designer since she speaks no Macedonian. Explain the unusual diagnosis to the patient through the hair and makeup designer. Date of service 01/10/2022: Spoke with patient via the virtual hair and makeup designer. Patient continues to report no ongoing chest pain. She is still complaining of some shortness of breath with exertion. No other complaints. Review of Systems Review of Systems: All systems reviewed & are unremarkable except as noted in HPI and below Constitutional: Constitutional: Denies excessive sweating, Denies headache(s) and Denies weakness Eyes: Eyes: Denies blurry vision ENT: Reports Normal hearing present and Denies headache(s) Cardiovascular: Cardiovascular: Reports chest pain, Reports leg edema and Denies dyspnea Respiratory: Respiratory: Denies dyspnea Gastrointestinal: Gastrointestinal: Denies abdominal pain Genitourinary: Genitourinary: Denies flank pain Musculoskeletal: Musculoskeletal: Denies back pain and Denies numbness Integumentary/Breasts: Skin/Breast: Denies dry skin and Denies unusual bruising Neurologic: Reports Normal hearing present, Denies confusion, Denies headache(s), Denies numbness and Denies weakness Psychiatric: Psychiatric: Denies anxiety and Denies confusion Endocrine: Endocrine: Denies excessive sweating Hematologic/Lymphatic: Hematologic/Lymphatic: Denies easy bleeding Allergic/Immunologic: Allergic/Immunologic: Denies GI upset with certain foods Exam Narrative: Awake alert. Appears stated age Const: General: in distress and uncomfortable; No confusion Orientation/consciousness: No confusion HENMT: General nose exam: Normal nares present Eyes: Sclera: sclerae normal Neck: Neck: supple and no JVD Resp: Auscultation: clear to auscultation bilaterally Cardio: Rate: regular rate Rhythm: regular rhythm GI: Auscultation: normal bowel sounds Skin: General skin exam: normal color Neuro: General: No confusion Cranial nerves: Yes Normal hearing present Cognition (Neuro): normal cognition Speech: normal speech Extrem: General: normal to inspection and no edema Psych: Mental Status: mental status grossly normal Objective Data Vital Signs Vital Signs: Vital Signs - 24 hr 01/09/22 13:13 01/09/22 14:00 01/09/22 16:00 Temperature 36.7 C Pulse Rate 56 L 67 69 Respiratory Rate 11 L 13 Blood Pressure 96/57 L Pulse Oximetry 95 94 01/09/22 18:00 01/09/22 18:38 01/09/22 19:59 Temperature Pulse Rate 62 60 63 Respiratory Rate 13 Blood Pressure Pulse Oximetry 93 01/09/22
[2022-01-10] MEDS: FUROSEMIDE 40 MG TABLET PO (12:13)
--- NOTE | 2022-01-10 13:15 | P.PNIM_ITS ---
Progress Note: A&P Assessment and Plan (1) Acute coronary syndrome: Code(s): I24.9 - Acute ischemic heart disease, unspecified Status: Acute Assessment and Plan: * Present to the ED with Chest pain * EKG SR with some inverted T waves * Chest xray: no acute cardiopulmonary abnormalities * CTA: No evidence for pulmonary embolism, Bilateral ground glass opacities which may be due to expiratory imaging, pneumonia or edema. 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 (2) Tobacco abuse: Code(s): Z72.0 - Tobacco use Status: Acute Assessment and Plan: * Smoking cessation counseling given for 8 minutes * Nicotine patch daily (3) Obese: Code(s): E66.9 - Obesity, unspecified Status: Acute Assessment and Plan: * Discussed dietary modifications * Systems Analyst consult * lifestyle modifications (4) Hypothyroidism: Code(s): E03.9 - Hypothyroidism, unspecified Status: Acute Assessment and Plan: * Resume home medications * TSH 33.600, T4 0.70 (5) Sleep apnea: Code(s): G47.30 - Sleep apnea, unspecified Status: Acute Assessment and Plan: * Apnea link initiated last night, interrupted with chest pain * reportedly had an SpO2 in the 60s during the night * 2 L of oxygen was applied per nasal cannula, wean to maintain saturations * Currently on room air (6) Hyperlipidemia: Code(s): E78.5 - Hyperlipidemia, unspecified Status: Acute Assessment and Plan: * Lipid panel: Cholesterol 171, LDL 83, HDL 49, triglycerides 258 * Atorvastatin 40mg PO daily Subjective Date/time seen: 01/10/22 13:31 Interval history: Date/Time: 01/07/22 12:06 Patient is a 51-year-old female with a past medical history of hypothyroidism, tobacco abuse and obesity. She presented to the hospital after developing chest pain at 3:00 a.m. this morning. It woke her up from her sleep. Pain radiated from her chest to her neck/jaw area and around to her back. She was able to get to the emergency department and received morphine, Zofran, nitro sublingual and started on a heparin drip. Labs and imaging were obtained during this time. Labs were significant for a WBC of 14.1, hemoglobin 15.2, hematocrit 44.9, platelets 316, sodium 141, potassium 3.8, BUN 21, creatinine 0.7 and a GFR greater than 60. Glucose was mildly elevated at 125, will obtain hemoglobin A1c, normal LFTs. Troponin initially 0.109, 0.356 and the 3rd subsequent troponin 1.100. Cardiology was consulted from the emergency department and will see in consultation. EKG did not reveal any ST segment abnormalities. CTA of the chest did not reveal a pulmonary embolism, did report possible pulmonary edema/diffuse ground-glass opacifications and cardiomegaly Date/time seen: 01/08/22 11:08 The patient was evaluated this morning at bedside with the plastic tile layer service. Patient was able to communicate well. She is alert and oriented x4. She did report mild shortness of breath during the night. Denies any chest pain. Obtain chest x-ray t
--- NOTE | 2022-01-10 13:15 | PM.IMPN ---
Progress Note: A&P Assessment and Plan (1) Acute coronary syndrome: Code(s): I24.9 - Acute ischemic heart disease, unspecified Status: Acute Assessment and Plan: Present to the ED with Chest pain EKG SR with some inverted T waves Chest xray: no acute cardiopulmonary abnormalities CTA: No evidence for pulmonary embolism, Bilateral ground glass opacities which may be due to expiratory imaging, pneumonia or edema. 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 (2) Tobacco abuse: Code(s): Z72.0 - Tobacco use Status: Acute Assessment and Plan: Smoking cessation counseling given for 8 minutes Nicotine patch daily (3) Obese: Code(s): E66.9 - Obesity, unspecified Status: Acute Assessment and Plan: Discussed dietary modifications Family Nurse Practitioner consult lifestyle modifications (4) Hypothyroidism: Code(s): E03.9 - Hypothyroidism, unspecified Status: Acute Assessment and Plan: Resume home medications TSH 33.600, T4 0.70 (5) Sleep apnea: Code(s): G47.30 - Sleep apnea, unspecified Status: Acute Assessment and Plan: Apnea link initiated last night, interrupted with chest pain reportedly had an SpO2 in the 60s during the night 2 L of oxygen was applied per nasal cannula, wean to maintain saturations Currently on room air (6) Hyperlipidemia: Code(s): E78.5 - Hyperlipidemia, unspecified Status: Acute Assessment and Plan: Lipid panel: Cholesterol 171, LDL 83, HDL 49, triglycerides 258 Atorvastatin 40mg PO daily Subjective Date/time seen: 01/10/22 13:31 Interval history: Date/Time: 01/07/22 12:06 Patient is a 51-year-old female with a past medical history of hypothyroidism, tobacco abuse and obesity. She presented to the hospital after developing chest pain at 3:00 a.m. this morning. It woke her up from her sleep. Pain radiated from her chest to her neck/jaw area and around to her back. She was able to get to the emergency department and received morphine, Zofran, nitro sublingual and started on a heparin drip. Labs and imaging were obtained during this time. Labs were significant for a WBC of 14.1, hemoglobin 15.2, hematocrit 44.9, platelets 316, sodium 141, potassium 3.8, BUN 21, creatinine 0.7 and a GFR greater than 60. Glucose was mildly elevated at 125, will obtain hemoglobin A1c, normal LFTs. Troponin initially 0.109, 0.356 and the 3rd subsequent troponin 1.100. Cardiology was consulted from the emergency department and will see in consultation. EKG did not reveal any ST segment abnormalities. CTA of the chest did not reveal a pulmonary embolism, did report possible pulmonary edema/diffuse ground-glass opacifications and cardiomegaly Date/time seen: 01/08/22 11:08 The patient was evaluated this morning at bedside with the academic advisor service. Patient was able to communicate well. She is alert and oriented x4. She did report mild shortness of breath during the night. Denies any chest pain. Obtain chest x-ray this morning, pending results. Cardiology note reviewed, continue heparin and aspirin. Patient denies any active chest pain, nausea, vomiting or diarrhea. She did endorse mild shortness of breath, 2 L of oxygen applied to the patient. SpO2 99% on room air. Patient reportedly had an episode of apnea during the night and her SpO2 dropped to 68%. Will obtain a nocturnal sleep study tonight. Cardiac catheterization site appears clean, dry and dressing is i
[2022-01-10 15:17] LABS: Partial Thromboplastin Time > 200.0 SECONDS (22.3-36.8)
[2022-01-10 22:41] LABS: Partial Thromboplastin Time 50.7 SECONDS (22.3-36.8)
[2022-01-10] MEDS: HEPARIN SOD/D5W 100 UNITS/ML 25,000 UNITS/250 ML BAG 15 UNITS IV CONT (23:15)
[2022-01-11] VITALS (9 sets, daily range): BP systolic 107–112; BP diastolic 67–81; PULSE 58–72; RESP 12–16; TEMP 36–36.3; O2SAT 91–97
[2022-01-11 05:48] LABS: Basophils Absolute Auto 0.1 K/mm3 (0.0-0.1); Basophils Percent Auto 0.8 % (0.2-1.2); Eosinophils Absolute Auto 0.4 K/mm3 (0-0.3); Eosinophils Percent Auto 4.8 % (0-4.4); Hematocrit 43.9 % (37.0-47.0); Hemoglobin 14.7 g/dL (12.0-15.0); Immature Granulocyte Absolute 0.01 K/mm3 (0.00-0.031); Immature Granulocyte Percent A 0.1 % (0-0.5); Lymphocytes Percent Auto 35.5 % (18.3-44.2); Mean Corpuscular HGB Conc 33.5 g/dl (32-36); Mean Corpuscular Hemoglobin 30.8 pg (26-34); Mean Corpuscular Volume 91.8 fl (80-100); Mean Platelet Volume 10.4 fl (7.4-10.4); Monocytes Absolute Auto 0.6 K/mm3 (0.1-0.6); Monocytes Percent Auto 6.8 % (2.6-8.5); Neutrophils Absolute Auto 4.5 K/mm3 (1.3-6.7); Platelet Count Result 281 k/mm3 (150-375); Red Blood Count 4.78 M/mm3 (4.2-5.4); Red Cell Distribution Width 14.3 % (11.5-14.5); White Blood Count 8.7 K/mm3 (4.5-10.0)
[2022-01-11 06:04] LABS: Partial Thromboplastin Time 154.7 SECONDS (22.3-36.8)
[2022-01-11 06:09] LABS: Alanine Aminotransferase 25 U/L (4-35); Albumin Level 4.3 g/dL (3.5-5.1); Alkaline Phosphatase 126 U/L (38-126); Anion Gap 5 mmol/L (8-16); Aspartate Amino Transferase 31 U/L (14-36); Bilirubin,Total 0.6 mg/dL (0.2-1.3); Blood Urea Nitrogen 15 mg/dL (7-17); Calcium 8.8 mg/dL (8.4-10.2); Carbon Dioxide 33 mmol/L (22-30); Chloride 99 mmol/L (98-107); Estimated CRCL calculation 77 ml/min; Estimated Glomerular Filt Rate > 60; Glucose 102 mg/dL (65-110); Potassium 3.8 mmol/L (3.4-5.0); Sodium 137 mmol/L (137-145)
[2022-01-11] MEDS: LEVOTHYROXINE SODIUM 100 MCG TABLET PO (06:15)
--- NOTE | 2022-01-11 08:30 | P.DS_ITS ---
DS: Admitting Diagnosis Discharge Date 01/11/22829 Admitting Diagnosis ACS DS: Discharge Diagnosis Discharge Diagnosis (1) Acute coronary syndrome: Code(s): I24.9 - Acute ischemic heart disease, unspecified Status: Acute Assessment and Plan: * Present to the ED with Chest pain * EKG SR with some inverted T waves * Chest xray: no acute cardiopulmonary abnormalities * CTA: No evidence for pulmonary embolism, Bilateral ground glass opacities which may be due to expiratory imaging, pneumonia or edema. 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 with hematoma of the LCX * Monitor vital signs, I&Os, chest pain, shortness of breath and patient is a fall risk * Continue Heparin drip per ACS protocol and aspirin per Cardiology * DVT Px: Heparin Drip (2) Tobacco abuse: Code(s): Z72.0 - Tobacco use Status: Acute Assessment and Plan: * Smoking cessation counseling given for 8 minutes * Nicotine patch daily (3) Obese: Code(s): E66.9 - Obesity, unspecified Status: Acute Assessment and Plan: * Discussed dietary modifications * Floral Specialist consult * lifestyle modifications (4) Hypothyroidism: Code(s): E03.9 - Hypothyroidism, unspecified Status: Acute Assessment and Plan: * Resume home medications * TSH 33.600, T4 0.70 (5) Sleep apnea: Code(s): G47.30 - Sleep apnea, unspecified Status: Acute Assessment and Plan: * Apnea link initiated last night, interrupted with chest pain * reportedly had an SpO2 in the 60s during the night * 2 L of oxygen was applied per nasal cannula, wean to maintain saturations (6) Hyperlipidemia: Code(s): E78.5 - Hyperlipidemia, unspecified Status: Acute Assessment and Plan: * Lipid panel: Cholesterol 171, LDL 83, HDL 49, triglycerides 258 * Atorvastatin 40mg PO daily DS: Summary Hospital Course Hospital Course: Patient is a 51-year-old female with a past medical history of hypothyroidism and tobacco abuse that presented the ED with complaints chest pain that woke her up from her sleep that radiated to her neck and jaw. Patient was given morphine, Zofran, nitro and started on heparin drip. Troponins were initially elevated and her documented above. Cardiology was consulted. Patient is CTA done and that did not read meal any PD this time. Patient went to cardiac cath which revealed spontaneous coronary artery dissection with hematoma of the LCX. Echo also performed and showed an EF of 50-55% and a grade 2 diastolic dysfunction. She did have another episode of chest pain, however, did resolve within 30 minutes. Lipid panel was also collected and showed elevated triglycerides and she was started on atorvastatin. She is stable at this time and is stable for discharge. She denies any chest pain, shortness of breath, nausea, vomiting, weakness, fatigue. Time spent discussing smoking cessation with patient: 3 to 10 minutes Status at Discharge Functional status at discharge: independent ambulation Overall status at discharge: patient is progressing back to baseline Time Spent with Patient Time attestation: Total time spent providing and/or coordinating discharge services:48 minutes Time spent: Greater than 30 minutes Specific discharge activities:
--- NOTE | 2022-01-11 08:30 | PM.DS ---
DS: Admitting Diagnosis Discharge Date 01/11/22829 Admitting Diagnosis ACS DS: Discharge Diagnosis Discharge Diagnosis (1) Acute coronary syndrome: Code(s): I24.9 - Acute ischemic heart disease, unspecified Status: Acute Assessment and Plan: Present to the ED with Chest pain EKG SR with some inverted T waves Chest xray: no acute cardiopulmonary abnormalities CTA: No evidence for pulmonary embolism, Bilateral ground glass opacities which may be due to expiratory imaging, pneumonia or edema. 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 with hematoma of the LCX Monitor vital signs, I&Os, chest pain, shortness of breath and patient is a fall risk Continue Heparin drip per ACS protocol and aspirin per Cardiology DVT Px: Heparin Drip (2) Tobacco abuse: Code(s): Z72.0 - Tobacco use Status: Acute Assessment and Plan: Smoking cessation counseling given for 8 minutes Nicotine patch daily (3) Obese: Code(s): E66.9 - Obesity, unspecified Status: Acute Assessment and Plan: Discussed dietary modifications Customer Care Assistant consult lifestyle modifications (4) Hypothyroidism: Code(s): E03.9 - Hypothyroidism, unspecified Status: Acute Assessment and Plan: Resume home medications TSH 33.600, T4 0.70 (5) Sleep apnea: Code(s): G47.30 - Sleep apnea, unspecified Status: Acute Assessment and Plan: Apnea link initiated last night, interrupted with chest pain reportedly had an SpO2 in the 60s during the night 2 L of oxygen was applied per nasal cannula, wean to maintain saturations (6) Hyperlipidemia: Code(s): E78.5 - Hyperlipidemia, unspecified Status: Acute Assessment and Plan: Lipid panel: Cholesterol 171, LDL 83, HDL 49, triglycerides 258 Atorvastatin 40mg PO daily DS: Summary Hospital Course Hospital Course: Patient is a 51-year-old female with a past medical history of hypothyroidism and tobacco abuse that presented the ED with complaints chest pain that woke her up from her sleep that radiated to her neck and jaw. Patient was given morphine, Zofran, nitro and started on heparin drip. Troponins were initially elevated and her documented above. Cardiology was consulted. Patient is CTA done and that did not read meal any PD this time. Patient went to cardiac cath which revealed spontaneous coronary artery dissection with hematoma of the LCX. Echo also performed and showed an EF of 50-55% and a grade 2 diastolic dysfunction. She did have another episode of chest pain, however, did resolve within 30 minutes. Lipid panel was also collected and showed elevated triglycerides and she was started on atorvastatin. She is stable at this time and is stable for discharge. She denies any chest pain, shortness of breath, nausea, vomiting, weakness, fatigue. Time spent discussing smoking cessation with patient: 3 to 10 minutes Status at Discharge Functional status at discharge: independent ambulation Overall status at discharge: patient is progressing back to baseline Time Spent with Patient Time attestation: Total time spent providing and/or coordinating discharge services:48 minutes Time spent: Greater than 30 minutes Specific discharge activities: Diagnostic testing, chart review, developing a treatment plan, education, care coordination documentation, physical exam, result review Exam Const: General: cooperative, healthy appearing, no acute distress, well developed, alert and awake Nutritional Appearance: well nourished, obese and overweight Orientation/consciousness: oriented to person, oriented to place, oriented to time and patient oriented x3 Limitations: no limitations HENMT: Head: normal to inspection Ear
[2022-01-11] MEDS: ATORVASTATIN 40 MG TABLET PO (08:41)
[2022-01-11] MEDS: METOPROLOL TARTRATE 25 MG TABLET PO (08:41)
[2022-01-11] MEDS: ASPIRIN 81 MG CHEWABLE TABLET PO (08:41)
[2022-01-11] MEDS: FUROSEMIDE 40 MG TABLET PO (08:41)
[2022-01-11] MEDS: polyethylene glycoL 3350 17 GM POWD.PACK PO (09:31)
[2022-01-11 13:21] LABS: Partial Thromboplastin Time 77.2 SECONDS (22.3-36.8)
--- NOTE | 2022-01-11 14:22 | PM.PNCARD ---
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 She denies any ongoing chest pain at this time. Since her pain has resolved she does not require any further intervention. She has now been anticoagulated with heparin for 4 days now. She is stable for discharge home and should remain on ASA, and a beta aline. Does not require systemic anticoagulation. Follow up in our office will be arranged. (2) Tobacco abuse: Code(s): Z72.0 - Tobacco use Status: Acute Assessment and Plan: Smoking cessation counseling performed. (3) Obese: Code(s): E66.9 - Obesity, unspecified Status: Acute Assessment and Plan: Weight loss advised (4) Hypothyroidism: Code(s): E03.9 - Hypothyroidism, unspecified Status: Acute Assessment and Plan: Continue levothyroxine Subjective Date/time seen: 01/11/22 14:22 Interval history: Follow-up visit in this 51-year-old female with: Chest pain emergency catheterization done on Sunday yields the diagnosis of spontaneous coronary dissection. Being treated with aspirin beta-aline and anticoagulation as well as statin. This morning patient reports no active chest pain feels a bit short of breath. History obtained through the virtual per diem interpreter since she speaks no [place]an. Explain the unusual diagnosis to the patient through the per diem interpreter. Date of service 01/10/2022: Spoke with patient via the virtual per diem interpreter. Patient continues to report no ongoing chest pain. She is still complaining of some shortness of breath with exertion. No other complaints. Date of service 01/11/2022: Patient continues to feel well today and is denying any chest pain. She does still have some complaints of shortness of breath with activity. No other complaints. Review of Systems Review of Systems: All systems reviewed & are unremarkable except as noted in HPI and below Constitutional: Constitutional: Denies excessive sweating, Denies headache(s) and Denies weakness Eyes: Eyes: Denies blurry vision ENT: Reports Normal hearing present and Denies headache(s) Cardiovascular: Cardiovascular: Reports chest pain, Reports leg edema and Denies dyspnea Respiratory: Respiratory: Denies dyspnea Gastrointestinal: Gastrointestinal: Denies abdominal pain Genitourinary: Genitourinary: Denies flank pain Musculoskeletal: Musculoskeletal: Denies back pain and Denies numbness Integumentary/Breasts: Skin/Breast: Denies dry skin and Denies unusual bruising Neurologic: Reports Normal hearing present, Denies confusion, Denies headache(s), Denies numbness and Denies weakness Psychiatric: Psychiatric: Denies anxiety and Denies confusion Endocrine: Endocrine: Denies excessive sweating Hematologic/Lymphatic: Hematologic/Lymphatic: Denies easy bleeding Allergic/Immunologic: Allergic/Immunologic: Denies GI upset with certain foods Exam Narrative: Awake alert. Appears stated age Const: General: in distress and uncomfortable; No confusion Orientation/consciousness: No confusion HENMT: General nose exam: Normal nares present Eyes: Sclera: sclerae normal Neck: Neck: supple and no JVD Resp: Auscultation: clear to auscultation bilaterally Cardio: Rate: regular rate Rhythm: regular rhythm GI: Auscultation: normal bowel sounds Skin: General skin exam: normal color Neuro: General: No confusion Cranial nerves: Yes Normal hearing present Cognition (Neuro): normal cognition Speech: normal speech Extrem: General: normal to inspection and no edema Psych: Mental Status: mental status grossly normal Objective Data Vital Signs Vital Signs: Vital Signs - 24 hr 01/10/22 16:00 01/10/22 18:00 01/10/22 20:00 Temperature 35.9
== END 2022-01-11 15:25 | disposition home or self-care (01) | DRG 191 ==
LOC: ANHED 03:50 → ANHIMU 07:27 → ANHCPC 01-11 06:11 → ANHIMU 01-12 11:39
PROVIDERS: Internal Medicine; Internal Medicine Cardiovascular Disease; Internal Medicine Interventional Cardiology; Nurse Practitioner Family; Specialist; Admitting Provider Internal Medicine; Emergency Provider Emergency Medicine; Visit Provider Nurse Practitioner
PROC: 4A023N7 Measurement of Cardiac Sampling and Pressure, Left Heart, Percutaneous Approach (ICD-10-PCS; CPT 93452; principal; 2022-01-07 14:15)
PROC: 4A023N7 Measurement of Cardiac Sampling and Pressure, Left Heart, Percutaneous Approach (ICD-10-PCS; 2022-01-07 14:15)
DX: I24.9 Acute ischemic heart disease, unspecified (principal); I25.42 Coronary artery dissection; Z20.822 Contact with and (suspected) exposure to COVID-19; E03.9 Hypothyroidism, unspecified; F17.210 Nicotine dependence, cigarettes, uncomplicated; E66.9 Obesity, unspecified; Z68.41 Body mass index [BMI] 40.0-44.9, adult; G47.30 Sleep apnea, unspecified; E78.5 Hyperlipidemia, unspecified; Z79.899 Other long term (current) drug therapy
CPT/HCPCS: 36415; 71045; 71275; 80053; 80061; 81001; 83036; 83690; 83735; 83880; 84439; 84443; 84484; 85025; 85610; 85730; 92978; 93005; 93306; 93458; 94762; 96365; 96366; 96375; 96376; 99291; A9270; C1753; C1769; C1887; C1894; C9803; G0378; G0379; J0131; J1644; J2250; J2270; J2405; J3010; J7030; J7040; Q9967; U0003; U0005

== ENCOUNTER 2022-03-02 11:15 | Emergency (ER) | payer MEDICAID, SELFPAY ==
--- NOTE | ~2022-03-02 | CT_ITS ---
EXAMINATION: CT abdomen pelvis wo con DATE: 03/02/2022 13:40 INDICATION: Hematuria TECHNIQUE: Computed tomography (CT) of the abdomen and pelvis was performed without intravenous contr ast. The dose-length product (DLP) was 418.93 mGy-cm. Automated exposure control and iterative recons truction technique were employed. COMPARISON: None FINDINGS: The lung bases are clear. The heart size is normal. Punctate calcifications in an otherwise normal spleen likely represent healed granulomatous disease. The liver, pancreas, gallbladder, and a drenal glands are normal. The kidneys are unremarkable. No stones are identified in the kidneys, uret ers, or bladder. There is no hydronephrosis or hydroureter. No pathologically enlarged abdominal or p elvic lymph nodes are identified. There is no free intraperitoneal gas or evidence of bowel obstructi on. A calcification is noted in the left ovary. IMPRESSION: 1. No CT correlate for the patient's symptoms. Reviewed, dictated and finalized at location A.
--- NOTE | ~2022-03-02 | US_ITS ---
EXAMINATION: US right upper quadrant DATE: 03/02/2022 12:19 INDICATION: Right upper quadrant pain TECHNIQUE: Multiple grayscale and Doppler ultrasound images of the abdomen were obtained. COMPARISON: None available FINDINGS: The head and body of the pancreas are normal. The pancreatic tail is obscured by bowel gas. The liver demonstrates increased echogenicity, heterogenous echotexture, and decreased through trans mission. No surface nodularity. Normal hepatopetal flow in the main portal vein. The gallbladder is n ormal with no abnormal wall thickening, pericholecystic fluid or stones. The normal common bile duct measures 4 mm. There was no sonographic Galdamez sign. IMPRESSION: 1. Diffuse hepatic steatosis. Reviewed, dictated and finalized at location A.
[2022-03-02 11:23] VITALS: BP 149/81; PULSE 60; RESP 18; TEMP 36.3; O2SAT 98
--- NOTE | 2022-03-02 11:45 | PC.NURSE ---
Patient to ultrasound.
--- NOTE | 2022-03-02 12:16 | ED.ABDPAIN ---
HPI - Abdominal Pain General Chief Complaint: Abdominal Pain Stated Complaint: abd pain Time Seen by Provider: 03/02/22 11:21 Source: patient and RN notes reviewed Mode of arrival: ambulatory Limitations: no limitations History of Present Illness HPI narrative: This is 51 year old female who presents for evaluation of right abdominal pain. She reports pain for several days and she states her pain is constant. It is worse with movement and eating, and she has associated nausea. she has not taken anything for her pain, and she rates pain 6/10. She was evaluated by her PCP yesterday and imaging has been ordered for her as outpatient. She was having worsening pain so she came to ER. Location: RUQ Radiation: R flank Relieving factors: nothing Related Data Home Medications Medication Instructions Recorded Confirmed levothyroxine 100 mcg DAILY 01/07/22 01/07/22 Allergies Allergy/AdvReac Type Severity Reaction Status Date / Time No Known Allergies Allergy Verified 01/07/22 03:31 Review of Systems Review of Systems: All systems reviewed & are unremarkable except as noted in HPI and below Constitutional: Constitutional: Denies chills and Denies fever(s) Cardiovascular: Cardiovascular: Denies chest pain Respiratory: Respiratory: Denies cough Gastrointestinal: Gastrointestinal: Reports abdominal pain, Denies diarrhea, Reports nausea and Denies vomiting Genitourinary: Genitourinary: Denies hematuria and Denies dysuria [facility] Past Medical History Medical History (Updated 03/02/22 @ 14:44 by Beatrice Mejia MD) Hyperlipidemia Hypothyroid Non-ST elevated myocardial infarction Family History Family History (Updated 01/07/22 @ 13:39 by Gurpreet Estrada MD) Mother Hypothyroidism Social History Social History (Updated 01/07/22 @ 12:08 by Ramonita Jalloh APRN) Smoking packs per day: 0.5 Smoking cigarettes per day: 10.0 Years smoked: 10 Smoking pack-years: 5.00 Smoking status: Current every day smoker Tobacco type: cigarettes Alcohol intake: never Substance use: never Spiritual care concerns: No Exam Const: General: alert Orientation/consciousness: patient oriented x3 Eyes: EOM: EOMs intact bilaterally Resp: Effort & Inspection: normal respiratory effort and no retractions Auscultation: clear to auscultation bilaterally Cardio: Rate: regular rate Rhythm: regular rhythm Heart sounds: no murmurs GI: GI Palp: Yes Soft to palpation, Yes Tenderness to palpation present (GI) (RUQ) and No Guarding due to palpation present (GI) Auscultation: normal bowel sounds Back/Spine/Pelvis: Back: no CVA tenderness Skin: General skin exam: normal color Rashes: no rashes Extrem: General: normal to inspection Psych: Mental Status: mental status grossly normal Affect: normal affect Course Reevaluation(s) Reevaluation #1: I discussed with patient that labs were unremarkable. US shows fatty liver but no gallstones or cholecystectomy. No kidney stone either. I spoke with patient with video translator/interpreter. She reports improvement in her pain. I discussed she will need to do low fat diet and follow up with PCP. Date: 03/02/22 Time: 14:40 Vital Signs Vital signs: Vital Signs Temperature 97.4 F L 03/02/22 11:23 Pulse Rate 60 03/02/22 11:23 Respiratory Rate 18 03/02/22 11:23 Blood Pressure 149/81 H 03/02/22 11:23 Pulse Oximetry 98 03/02/22 11:23 Temperature 97.4 F L 03/02/22 13:30 Pulse Rate 53 L 03/02/22 15:31 Respiratory Rate 18 03/02/22 15:31 Blood Pressure 104/66 03/02/22 15:31 Pulse Oximetry 98 03/02/22 15:31 MDM - Abdominal Pain Lab Data Attestation: I reviewed the patient's lab results. Result diagrams: 03/02/22 12:24 03/02/22 12:24 Labs: Lab Results 03/02/22 03/02/22 03/02/22 Range/Units 12:22 12:24 12:24 WBC 6.1 (4.5-10.0) K/mm3 RBC 4.58 (4.2-5.4) M/mm3 Hgb 14.1 (12.0-15.0) g
[2022-03-02 12:33] LABS: Basophils Absolute Auto 0.1 K/mm3 (0.0-0.1); Eosinophils Absolute Auto 0.5 K/mm3 (0-0.3); Eosinophils Percent Auto 7.4 % (0-4.4); Hematocrit 42.9 % (37.0-47.0); Hemoglobin 14.1 g/dL (12.0-15.0); Lymphocytes Absolute Auto 2.48 K/mm3 (0.9-3.2); Lymphocytes Percent Auto 40.9 % (18.3-44.2); Mean Corpuscular HGB Conc 32.9 g/dl (32-36); Mean Corpuscular Hemoglobin 30.8 pg (26-34); Mean Corpuscular Volume 93.7 fl (80-100); Mean Platelet Volume 10.4 fl (7.4-10.4); Monocytes Absolute Auto 0.5 K/mm3 (0.1-0.6); Monocytes Percent Auto 8.6 % (2.6-8.5); Neutrophils Absolute Auto 2.6 K/mm3 (1.3-6.7); Neutrophils Percent Auto 42.1 % (45.5-73.1); Platelet Count Result 294 k/mm3 (150-375); Red Blood Count 4.58 M/mm3 (4.2-5.4); Red Cell Distribution Width 14.2 % (11.5-14.5); White Blood Count 6.1 K/mm3 (4.5-10.0)
[2022-03-02 12:38] LABS: Bilirubin Urine Negative (Negative); Blood Urine 2+ (Negative); Color Urine Yellow (Yellow); Glucose Urine UA Negative (Negative); Ketones Urine Negative (Negative); Leukocyte Esterase Ur Trace LEU/UL (Negative); Nitrate Urine Negative (Negative); Protein Urine Negative (Negative); Specific Grav Ur >= 1.030 (1.001-1.035); Urobilinogen Urine 0.2 mg/dL (<2.0); pH Urine 5.5 (5.0-9.0)
[2022-03-02 12:39] LABS: Add Urine Microscopic? YES; Appearance Urine Sl Cloudy (Clear)
[2022-03-02 12:40] LABS: Alanine Aminotransferase 26 U/L (4-35); Albumin Level 4.3 g/dL (3.5-5.1); Alkaline Phosphatase 104 U/L (38-126); Anion Gap 5 mmol/L (8-16); Aspartate Amino Transferase 34 U/L (14-36); Bilirubin,Total 0.4 mg/dL (0.2-1.3); Blood Urea Nitrogen 17 mg/dL (7-17); Calcium 8.6 mg/dL (8.4-10.2); Carbon Dioxide 29 mmol/L (22-30); Chloride 104 mmol/L (98-107); Estimated CRCL calculation 75 ml/min; Estimated Glomerular Filt Rate > 60; Glucose 110 mg/dL (65-110); Lipase 36 U/L (23-300); Potassium 3.8 mmol/L (3.4-5.0); Sodium 138 mmol/L (137-145)
[2022-03-02 12:41] LABS: Bacteria Urine Trace /hpf; Mucus Urine Rare /lpf; Squamous Epithelial Cell Urine Many /hpf (Few)
[2022-03-02 12:47] VITALS: PULSE 56; RESP 14; O2SAT 97
[2022-03-02] MEDS: ONDANSETRON INJ 4 MG/2 ML VIAL IV PUSH (13:00)
[2022-03-02] MEDS: KETOROLAC 30 MG/ML VIAL (*BKC) IV PUSH (13:00)
[2022-03-02 13:30] VITALS: TEMP 36.3
[2022-03-02 15:31] VITALS: BP 104/66; PULSE 53; RESP 18; O2SAT 98
== END 2022-03-02 15:35 | disposition home or self-care (01) ==
PROVIDERS: Emergency Provider General Practice
DX: R10.11 Right upper quadrant pain (principal); E78.5 Hyperlipidemia, unspecified; E03.9 Hypothyroidism, unspecified; I25.2 Old myocardial infarction; F17.210 Nicotine dependence, cigarettes, uncomplicated; K76.0 Fatty (change of) liver, not elsewhere classified
CPT/HCPCS: 36415; 74176; 76705; 80053; 81001; 81025; 83690; 85025; 87086; 87088; 96374; 96375; 99284; J1885; J2405